=== PATIENT | female | born 1970 | race Caucasian/White ===

== ENCOUNTER 2025-05-14 16:26 | Emergency (ER) | payer BC ==
[~2025-05-14] VITALS: Ht 167.6 cm; Wt 89.2 kg
--- NOTE | 2025-05-14 17:05 | Physician Documentation ---
History of Present Illness ~ Chief Complaint: Vaginal Bleeding Stated Complaint: VAGINAL BLEEDING Time Seen by MD: 19:05 HPI MSE: Is a very pleasant 54-year-old male that reports to the emergency department for evaluation of abnormal vaginal bleeding. Patient reports that she is 13 months postmenopausal without menses. Patient reports he started bleeding in the middle of the night 2 nights ago. Reported these findings her assistant director. [employer] is referred her to the emergency department for evaluation. Patient reports the bleeding is moderately heavy some requiring up to 4 tampons per day small clots. Patient denies fever chills nausea vomiting diarrhea shortness of breath lightheadedness dizziness at this time. Medication Reconciliation Allergies: Coded Allergies: No Known Allergies (Unverified , 05/14/25) Review of Systems ROS As stated above in the HPI, otherwise all systems are reviewed and negative. Physical Exam Vital Signs: Temperature: 98.0, Source: Temporal, Heart Rate: 77, Respiratory Rate: 16, BP: 149/86, Pulse Oximetry: 98, Weight: 89.200 Oxygen Flow Rate: 0 Physical Exam VITALS: Reviewed and as above. GENERAL: Alert, no apparent distress. HEENT: Normocephalic, atraumatic, PERRL, EOMI, dry mucosa, no erythema RESPIRATORY: Lungs clear, normal breath sounds, no respiratory distress. CHEST: No accessory muscle use, no retractions CV: Regular rate, rhythm, no edema, no murmur, No: JVD GI: Soft, non-tender, bowels sounds present, no rebound, guarding, or rigidity BACK: No CVA tenderness, or swelling MUSCULOSKELETAL No deformities, no edema SKIN: Warm and dry, no rash NEURO: Oriented x4, No motor or sensory deficit PSYCH: Normal mood and affect, no agitation Progress Results/Orders Results/Orders Orders - CANDY HOLMAN Us Abdomen Ltd (05/14/25 ) Us Pelvis Ltd (05/14/25 ) General Nursing Order (05/14/25 20:47) Completed Orders - CANDY HOLMAN Cbc/Diff (05/14/25 17:55) CMP (05/14/25 17:55) Urinalysis, Cult If Indicated (05/14/25 17:55) Hcg, Ur Ql (05/14/25 17:55) Vital Signs 11/7/05/14/25 05/14/25 05/14/25 16:54 17:16 18:21 22:04 Temp 98.0 97.9 97.9 Pulse 77 62 72 Resp 16 16 18 19 B/P (MAP) 149/86 134/92 (106) 128/88 (101) Pulse Ox 98 98 97 O2 Flow Rate 0 0 0 Laboratory Tests Test 05/14/25 17:37 05/14/25 18:13 Urine Specimen Description Cln catch midstream Urine Color Yellow Urine Clarity Clear Urine pH 6.0 Urine Specific [place] <=1.005 Urine Protein Negative Urine Glucose (UA) Negative Urine Ketones Negative Urine Occult Blood Negative Urine Nitrite Negative Urine Bilirubin Negative Urine Urobilinogen 0.2 Urine Leukocyte Esterase Negative Urine Culture Indicated Not ind Volume Urine Centrifuged 10 ml Urine HCG, Qualitative Negative Urine Comment White Blood Count 6.6 Red Blood Count 4.29 Hemoglobin 13.6 Hematocrit 39.3 Mean Corpuscular Volume 91.5 Mean Corpuscular Hemoglobin 31.6 H Mean Corpuscular Hemoglobin Concent 34.6 Red Cell Distribution Width 13.4 Platelet Count 210 Mean Platelet Volume 10.0 Neutrophils (%) (Auto) 58.8 Lymphocytes (%) (Auto) 28.8 Monocytes (%) (Auto) 9.4 Eosinophils (%) (Auto) 1.9 Basophils (%) (Auto) 1.1 H Neutrophils # (Auto) 3.9 Lymphocytes # (Auto) 1.9 Monocytes # (Auto) 0.6 Eosinophils # (Auto) 0.1 Basophils # (Auto) 0.1 CBC Comment Sodium Level 142 Potassium Level 3.4 L Chloride Level 107 Carbon Dioxide Level 28.7 Anion Gap 6 L Blood Urea Nitrogen 13 Creatinine 0.65 Estimated GFR/1.73 m2 > 90 BUN/Creatinine Ratio 20.0 Glucose Level 75 Calcium Level 8.8 Total Bilirubin 1.0 Aspartate Amino Transf (AST/SGOT) 18 Alanine Aminotransferase (ALT/SGPT) 23 Alkaline Phosphatase 62 Total Protein 7.1 Albumin 4.2 Globulin 2.9 Albumin/Globulin Ratio 1.4 Chemistry Comments Medical Decision Making Additional information obtaine: other Findings 54-year-old female presented with mild to moderate postmenopausal vaginal bleeding of spontaneous onset, 13 months after cessation of menses. She was clinically stable throughout her ED course. Laboratory studies, including CBC and coagulation profile, were within normal limits. Transvaginal ultrasound demonstrated small uterine fibroids; no endometrial thickening or mass was identified. Assessment: Postmenopausal bleeding, likely secondary to uterine fibroids. No evidence of acute anemia, coagulopathy, or hemodynamic instability. No sonographic features concerning for endometrial malignancy or sarcoma at this time. Medical Decision-Making: Initial evaluation of postmenopausal bleeding with ultrasound is guideline- concordant; endometrial sampling is reserved for cases with endometrial thickness >4 mm or inadequate visualization. In postmenopausal patients, fibroids typically regress, but persistent or recurrent bleeding warrants further evaluation to exclude malignancy. Patient is stable for discharge with outpatient follow-up. Referral to gynecology for further evaluation and consideration of endometrial sampling if symptoms persist or recur, per guidelines. Education provided on strict return precautions: return for heavy bleeding, syncope, dizziness, abdominal pain, or any new concerning symptoms. Plan: Outpatient follow-up with primary care and gynecology. Monitor for recurrent bleeding or new symptoms. Reinforce importance of follow-up to ensure exclusion of endometrial pathology. Disposition: Stable for discharge. Strict return precautions reviewed and understood. This management aligns with current recommendations for postmenopausal bleeding and fibroid-related abnormal uterine bleeding, emphasizing the need for ongoing surveillance and exclusion of malignancy in this population. Urinary Diff Dx:Considerations: Include: AAA, , Aortic dissection, Appendicitis, Bowel obstruction, Cholelithiasis, Choleangitis, DJD, Ectopic , Hepatitis, HNP, Impaction, Intrauterine , Musculoskeletal pain, Ovarian torsion, Pancreatitis, PID, Post-Op complication, Pyelonephritis, Renal failure, Strain, Urinary Obstruction, Urolithiasis, Urinary retention, UTI, Vaginitis, Other Genital Diff Dx:Considerations: Include: -Complete, - Incomplete, -Inevitable, Ablortion-Missed, -Threatened, Abruptio placentae, Bartholin abscess, Bartholin cyst, Blood loss anemia, Constipation, Cervicitis, Dsymenorrhea, Ectopic , Foreign body, Hormonal, Hidradenitis suppurativa, Intrauterine , Menorrhagia, Menometrorrhagia, Menstrual bleeding, Myomatous uterus, Perianal abscess, Physiologic discharge, Pinworms, PID, Placenta previa, , Precipitous Hct, Trauma, UTI, Vaginitis(osis)-Atrophic, Vaginitis, Vaginitis(osis)-Bacterial, Vaginitis(osis)- Candidal, Vaginitis(osis)-Contact, Vaginitis(osis)-Herpes, Vaginitis(osis)- Trich., Other Departure Disposition: 01 HOME / SELF CARE / HOMELESS Impression: Primary Impression: Vaginal bleeding Additional Impression: Fibroid Condition: Stable Discharge Instructions: Uterine Fibroids Additional Instructions: You were seen today for mild to moderate vaginal bleeding after menopause. Your labs are normal, and your ultrasound shows small fibroids, which are common benign growths in the uterus and are likely the cause of your bleeding. Most fibroids shrink after menopause, but sometimes they can still cause bleeding. What to expect: Mild bleeding may resolve on its own. Fibroids are usually not dangerous, but it is important to follow up to make sure there is no other cause for your bleeding. Follow-up: See your primary care provider as scheduled. You will be referred to a assistant director for further evaluation. Additional tests, such as an endometrial biopsy, may be needed if bleeding continues or worsens, to rule out cancer or other conditions. Return to the emergency department immediately if you experience: Heavy bleeding (soaking through a pad every hour for 2 or more hours) Dizziness, fainting, or weakness Severe abdominal pain Fever or chills Any new or concerning symptoms Other instructions: Keep track of any further bleeding episodes, including how much blood you see and how long it lasts. If you develop symptoms of anemia (such as fatigue, shortness of breath, or pale skin), let your doctor know. Questions: If you have any questions or concerns, contact your primary care provider or assistant director. Summary: Your condition is stable for discharge. You have been referred for further evaluation to ensure your health and safety. Please follow the instructions above and return for care if any concerning symptoms develop. Referrals: NO PRIMARY CARE PROVIDER (PCP) Education Educated: Patient Educated regarding: diagnosis, treatment, need for follow up Signature Scribe Signature: A Attestation: Scribed for Candy Holman by OFE Lloyd . 05/14/25 22:42 CANDY HOLMAN May 14, 2025 17:05
[2025-05-14 18:31] LABS: MEAN PLATELET VOLUME 10.0 FL (7.4-10.4); RED CELL DISTRIBUTION WIDTH 13.4 % (11.5-14.5)
[2025-05-14 18:44] LABS: URINE HCG NEGATIVE (NEG)
[2025-05-14 18:45] LABS: LEUKOCYTE ESTERASE ,URINE NEGATIVE (Neg); NITRITES, URINE NEGATIVE (Neg); OCCULT BLOOD,URINE NEGATIVE (Neg)
[2025-05-14 18:47] LABS: UA COLLECTION TYPE CLN CATCH MIDSTREAM
[2025-05-14 18:58] LABS: CREATININE 0.65 MG/DL (0.40-0.90); TOTAL CARBON DIOXIDE 28.7 MMOL/L (24-32); eCRCL 94 ML/MIN; eGFR > 90 ML/MIN
[2025-05-14 22:04] VITALS: TEMP 97.9
--- NOTE | 2025-05-14 22:09 | RADIOLOGY REPORT ---
INDICATION: Postmenopausal pelvic pain and bleeding. TECHNIQUE: Multiple real-time grayscale transabdominal sonographic images along with color and duplex Doppler of the uterus and ovaries were obtained. COMPARISON: None FINDINGS: The uterus measures 9.0 x 4.4 x 5.8 cm. The endometrial stripe measures 0.6 cm. Equivocal tiny submucosal fibroid measuring 0.5 cm. Right ovary measures 3.2 x 1.0 x 1.8 cm with normal Doppler color flow Left ovary measures 2.8 x 1.2 x 2.1 cm with normal Doppler color flow IMPRESSION: Equivocal tiny submucosal fibroid. Otherwise no clear cause for bleeding.
[2025-05-14 23:27] VITALS: BP 125/89; PULSE 70; RESP 16; O2SAT 100
== END 2025-05-14 23:29 | disposition home or self-care (01) ==
LOC: ER 16:28
DX: D25.9 Leiomyoma of uterus, unspecified (principal); N93.9 Abnormal uterine and vaginal bleeding, unspecified
CPT/HCPCS: 36415; 76830; 76856; 80053; 81003; 81025; 85025; 93976; 99284